=== PATIENT | male | born 1940 | race Caucasian/White ===

== ENCOUNTER 2024-11-24 13:00 | Emergency (ER) | payer MEDICARE, MEDICAID ==
[~2024-11-24] VITALS: Ht 175.3 cm; Wt 81.6 kg
[2024-11-24 13:02] VITALS: O2SAT 99
[2024-11-24 13:10] VITALS: BP 140/65; PULSE 61; RESP 18; TEMP 36.8; O2SAT 100
== END 2024-11-24 15:50 | disposition home or self-care (01) ==
LOC: ER 13:00
DX: S09.90XA Unspecified injury of head, initial encounter (principal); I10 Essential (primary) hypertension; E11.9 Type 2 diabetes mellitus without complications; Z90.49 Acquired absence of other specified parts of digestive tract; W18.2XXA Fall in (into) shower or empty bathtub, initial encounter; Y93.89 Activity, other specified; Y92.89 Other specified places as the place of occurrence of the external cause; Y99.8 Other external cause status
CPT/HCPCS: 99284

== ENCOUNTER 2025-04-23 11:48 | Inpatient (IN) | payer MEDICARE, MEDICAID ==
[~2025-04-23] VITALS: Ht 167.6 cm; Wt 80.3 kg
[~2025-04-23 11:48] MED LIST: APIX5TAB PO; ARIP2TAB66 PO; DILT30TA3 PO; FURO40TA5 PO; GLIM1TAB55 PO; MAG-135; PANT40TA51 PO; SENN-362 PO; TEMA15CA PO; VALS160T28 PO; [UNRECOGNIZED DRUG - CODE]; rosuvastatin
[2025-04-23 12:52] LABS: BASOPHILS % 0.8 % (0.0-2.0); EOSINOPHILS % 3.1 % (0.0-5.0); HEMATOCRIT. 30.0 % (42.0-52.0); HEMOGLOBIN. 9.4 g/dL (14.0-18.0); LYMPHOCYTES % 12.9 % (20.0-50.0); MEAN PLATELET VOLUME 8.0 fl (7.4-10.4); MONOCYTES % 8.9 % (2.0-8.0); NEUTROPHILS % 74.3 % (40.0-76.0); PLATELET 286 x1000/uL (130-400); RED BLOOD CELL COUNT 3.73 mill/uL (4.7-6.1); RED CELL DISTRIBUTION WIDTH 26.2 % (11.6-14.6)
[2025-04-23 13:03] LABS: ADD RBC MORPHOLOGY YES
[2025-04-23 13:12] LABS: UREA NITROGEN BLOOD 41 mg/dL (9-23)
[2025-04-23 13:17] LABS: CREATININE 1.6 mg/dL (0.6-1.3)
[2025-04-23 13:18] LABS: TROPONIN I HIGH SENSITIVITY 149 ng/L (3.0-53)
[2025-04-23 14:49] LABS: PLATELET ESTIMATE NORMAL
[2025-04-23] MEDS ORDERED: GUAIFENESIN 200MG/10ML SUGAR FREE UDC PO PRN (15:00)
[2025-04-23] MEDS ORDERED: DOCUSATE SODIUM 100MG CAPSULE PO PRN (15:00)
[2025-04-23] MEDS ORDERED: MAGNESIUM/ALUMINUM HYDROXIDE/SIMETHICONE 30ML UDC PO PRN (15:00)
[2025-04-23] MEDS ORDERED: DEXTROSE 50% WATER 50ML SYRINGE IV PRN (15:00)
[2025-04-23] MEDS ORDERED: IPRATROPIUM/ALBUTEROL 0.5-3(2.5)MG/3ML NEB HHN PRN (15:00)
[2025-04-23 15:39] LABS: TROPONIN I HIGH SENSITIVITY 122 ng/L (3.0-53)
[2025-04-23 16:11] LABS: FOLIC ACID (FOLATE) SERUM 8.68 ng/mL (>5.38); VITAMIN B12 SERUM 605 pg/mL (211-911)
[2025-04-23] MEDS: INSULIN LISPRO 100 UNITS/ML SUBCUT SCH (17:00)
[2025-04-23 20:00] VITALS: BP 179/49; PULSE 94; RESP 17; TEMP 36.1; O2SAT 96
[2025-04-23] MEDS ORDERED: PNEUMOCOCCAL 20-VAL CONJ-DIP CRM 0.5ML IM ONE (20:15)
[2025-04-23] MEDS ORDERED: ACETAMINOPHEN 325MG TABLET PO PRN (21:00)
[2025-04-23] MEDS: METOPROLOL TARTRATE 50MG TABLET PO SCH (21:16)
[2025-04-23] MEDS: ACETAMINOPHEN 325MG TABLET PO PRN (21:17)
[2025-04-23] MEDS: ATORVASTATIN CALCIUM 40MG TABLET PO SCH (21:17)
[2025-04-23] MEDS: BLOOD SUGAR DIAGNOSTIC STRIP TEST SCH (21:28)
[2025-04-23] MEDS: SODIUM CHLORIDE 0.9% 1,000 ML IV ONE (21:30)
[2025-04-23 21:35] LABS: PHOSPHORUS 4.1 mg/dL (2.5-4.9)
[2025-04-24] VITALS: BP 130/106; PULSE 67; RESP 16; TEMP 36.4; O2SAT 100
[2025-04-24 02:52] LABS: CLARITY URINE CLEAR (CLEAR); COLOR URINE YELLOW (YELLOW); GLUCOSE URINE NEGATIVE (NEGATIVE); KETONES URINE NEGATIVE (NEGATIVE); LEUKOCYTE ESTERASE URINE NEGATIVE (NEGATIVE); NITRITE URINE NEGATIVE (NEGATIVE); OCCULT BLOOD URINE NEGATIVE (NEGATIVE); PH URINE 5.5 (4.5-8.0); PROTEIN URINE NEGATIVE (NEGATIVE); SPECIFIC GRAVITY URINE 1.017 (1.005-1.030); UROBILINOGEN URINE 0.2 E.U./dL (0.2-1.0)
[2025-04-24 03:52] LABS: *AMPHETAMINES SCREEN URINE NEGATIVE (NEGATIVE); *BARBITURATES SCREEN URINE NEGATIVE (NEGATIVE); *BENZODIAZEPINES SCREEN URINE NEGATIVE (NEGATIVE); *COCAINE SCREEN URINE NEGATIVE (NEGATIVE); CANNABINOID URINE SCREEN NEGATIVE (NEGATIVE); METHADONE URINE SCREEN NEGATIVE (NEGATIVE); OPIATES URINE SCREEN NEGATIVE (NEGATIVE); PHENCYCLIDINE URINE SCREEN NEGATIVE (NEGATIVE)
[2025-04-24 03:53] LABS: ECSTASY MDMA SCREEN URINE NEGATIVE (NEGATIVE)
[2025-04-24 04:00] VITALS: BP 173/60; PULSE 74; RESP 18; TEMP 36.3; O2SAT 99
[2025-04-24] MEDS: CLONIDINE 0.1MG TABLET PO PRN (05:13)
[2025-04-24 08:00] VITALS: BP 151/55; PULSE 75; RESP 18; TEMP 36.2; O2SAT 99
[2025-04-24 08:12] LABS: BASOPHILS % 0.6 % (0.0-2.0); EOSINOPHILS % 3.6 % (0.0-5.0); HEMATOCRIT. 24.5 % (42.0-52.0); HEMOGLOBIN. 7.9 g/dL (14.0-18.0); LYMPHOCYTES % 15.0 % (20.0-50.0); MEAN PLATELET VOLUME 8.4 fl (7.4-10.4); MONOCYTES % 9.7 % (2.0-8.0); NEUTROPHILS % 71.1 % (40.0-76.0); PLATELET 224 x1000/uL (130-400); RED BLOOD CELL COUNT 3.09 mill/uL (4.7-6.1); RED CELL DISTRIBUTION WIDTH 26.1 % (11.6-14.6)
[2025-04-24] MEDS ORDERED: SENNOSIDES 8.6MG TABLET PO PRN (08:15)
[2025-04-24 08:30] LABS: CREATININE 1.3 mg/dL (0.6-1.3); TRIGLYCERIDE 72 mg/dL (0-150); UREA NITROGEN BLOOD 44 mg/dL (9-23)
[2025-04-24 08:31] LABS: LDL CHOLESTEROL 60 mg/dL (5-100)
[2025-04-24 08:32] LABS: ASPARTATE AMINOTRANSFERASE 21 IU/L (<34); BILIRUBIN DIRECT 0.3 mg/dL (<=3.0); BILIRUBIN TOTAL 0.5 mg/dL (0.1-1.0)
[2025-04-24 08:33] LABS: PROTEIN TOTAL 5.8 g/dL (6.0-8.3)
[2025-04-24] MEDS: PANTOPRAZOLE SODIUM 40 MG/VIAL IV SCH (09:00)
[2025-04-24 09:03] LABS: TROPONIN I HIGH SENSITIVITY 101 ng/L (3.0-53)
[2025-04-24 12:00] VITALS: BP 169/65; PULSE 76; RESP 18; TEMP 36.4; O2SAT 97
[2025-04-24] MEDS: ASPIRIN 81MG EC TABLET PO SCH (13:16)
[2025-04-24] MEDS: FOLIC ACID 1MG TABLET PO SCH (13:16)
[2025-04-24] MEDS: APIXABAN 2.5 MG TABLET PO SCH (13:16)
[2025-04-24] MEDS: THIAMINE HCL 100MG TABLET PO SCH (13:17)
[2025-04-24] MEDS: FERROUS SULFATE 325MG TABLET PO SCH (13:20)
[2025-04-24 16:00] VITALS: BP 151/58; PULSE 64; RESP 18; TEMP 36.4; O2SAT 100
[2025-04-24 17:25] LABS: TROPONIN I HIGH SENSITIVITY 94 ng/L (3.0-53)
[2025-04-24 20:00] VITALS: BP 149/50; PULSE 87; RESP 18; TEMP 36.4; O2SAT 99
[2025-04-25] VITALS: BP 131/47; PULSE 70; RESP 18; TEMP 36.5; O2SAT 98
[2025-04-25] MEDS: ONDANSETRON HCL 4MG/2ML INJ IV PRN (00:28)
[2025-04-25 04:00] VITALS: BP 136/53; PULSE 67; RESP 18; TEMP 36.4; O2SAT 99
[2025-04-25 05:48] LABS: BASOPHILS % 0.5 % (0.0-2.0); EOSINOPHILS % 3.2 % (0.0-5.0); HEMATOCRIT. 24.6 % (42.0-52.0); HEMOGLOBIN. 7.9 g/dL (14.0-18.0); LYMPHOCYTES % 12.5 % (20.0-50.0); MEAN PLATELET VOLUME 8.0 fl (7.4-10.4); MONOCYTES % 10.5 % (2.0-8.0); NEUTROPHILS % 73.3 % (40.0-76.0); PLATELET 207 x1000/uL (130-400); RED BLOOD CELL COUNT 3.07 mill/uL (4.7-6.1); RED CELL DISTRIBUTION WIDTH 25.9 % (11.6-14.6)
[2025-04-25 06:07] LABS: CREATININE 1.1 mg/dL (0.6-1.3); UREA NITROGEN BLOOD 33 mg/dL (9-23)
[2025-04-25 08:00] VITALS: BP 92/59; PULSE 80; RESP 18; TEMP 37.1; O2SAT 100
[2025-04-25 12:00] VITALS: BP 140/43; PULSE 74; RESP 18; TEMP 36.7; O2SAT 95
[2025-04-25 16:00] VITALS: BP_SYST 158; BP_SYST 161; BP_DIAS 105; BP_DIAS 73; PULSE 78; RESP 18; TEMP 37.3; O2SAT 97
[2025-04-25 20:00] VITALS: BP 167/64; PULSE 83; RESP 17; TEMP 36.4; O2SAT 96
[2025-04-25] MEDS ORDERED: CARISOPRODOL 350 MG TABLET PO PRN (20:30)
[2025-04-25] MEDS: MELATONIN 3MG TABLET PO SCH (21:44)
[2025-04-26] VITALS: BP 116/83; PULSE 60; RESP 16; TEMP 36.6; O2SAT 99
[2025-04-26 04:00] VITALS: BP 114/60; PULSE 64; RESP 16; TEMP 36.6; O2SAT 97
[2025-04-26 08:00] VITALS: BP 155/65; PULSE 88; RESP 18; TEMP 36.3; O2SAT 97
[2025-04-26 12:00] VITALS: BP 142/54; PULSE 59; RESP 18; TEMP 36.6; O2SAT 95
[2025-04-26] MEDS ORDERED: ZOLPIDEM TARTRATE 5MG TABLET PO PRN (13:30)
[2025-04-26 16:00] VITALS: BP 150/47; PULSE 65; RESP 18; TEMP 36.9; O2SAT 97
[2025-04-26 20:00] VITALS: BP 155/65; PULSE 86; RESP 20; TEMP 36.4; O2SAT 98
[2025-04-27] VITALS: BP 150/51; PULSE 88; RESP 18; TEMP 37; O2SAT 100
[2025-04-27 04:00] VITALS: BP 143/52; PULSE 71; RESP 17; TEMP 37.1; O2SAT 100
[2025-04-27 07:03] LABS: BASOPHILS % 0.4 % (0.0-2.0); EOSINOPHILS % 3.6 % (0.0-5.0); HEMATOCRIT. 25.4 % (42.0-52.0); HEMOGLOBIN. 8.1 g/dL (14.0-18.0); LYMPHOCYTES % 15.5 % (20.0-50.0); MEAN PLATELET VOLUME 8.5 fl (7.4-10.4); MONOCYTES % 10.7 % (2.0-8.0); NEUTROPHILS % 69.8 % (40.0-76.0); PLATELET 213 x1000/uL (130-400); RED BLOOD CELL COUNT 3.19 mill/uL (4.7-6.1); RED CELL DISTRIBUTION WIDTH 25.6 % (11.6-14.6)
[2025-04-27 07:12] LABS: CREATININE 1.1 mg/dL (0.6-1.3); UREA NITROGEN BLOOD 27 mg/dL (9-23)
[2025-04-27 07:14] LABS: PHOSPHORUS 3.4 mg/dL (2.5-4.9)
[2025-04-27 08:00] VITALS: BP 175/62; PULSE 73; RESP 20; TEMP 36.4; O2SAT 99
[2025-04-27] MEDS: AMLODIPINE 10MG TABLET PO SCH (08:29)
[2025-04-27 12:00] VITALS: BP 132/57; PULSE 64; RESP 20; TEMP 36.6; O2SAT 100
[2025-04-27 14:35] VITALS: BP 132/57; PULSE 64; TEMP 97.8; O2SAT 100
== END 2025-04-27 15:05 | DRG 391 ==
LOC: ER 11:48 → 5WST 13:55 → EDBEDREQTM 13:58 → EDBEDREQ 13:58 → ENRESERV 14:13 → 5WST 04-25 11:24 → 7EST 04-27 01:00
PROVIDERS: ADMIT Internal Medicine; ATTEND Internal Medicine
DX: K52.9 Noninfective gastroenteritis and colitis, unspecified (principal); G92.8 Other toxic encephalopathy; I21.A1 Myocardial infarction type 2; I48.20 Chronic atrial fibrillation, unspecified; N17.9 Acute kidney failure, unspecified; K29.70 Gastritis, unspecified, without bleeding; K57.30 Diverticulosis of large intestine without perforation or abscess without bleeding; I11.0 Hypertensive heart disease with heart failure; E86.0 Dehydration; E11.65 Type 2 diabetes mellitus with hyperglycemia; D64.9 Anemia, unspecified; F03.90 Unspecified dementia, unspecified severity, without behavioral disturbance, psychotic disturbance, mood disturbance, and anxiety; N40.1 Benign prostatic hyperplasia with lower urinary tract symptoms; N40.0 Benign prostatic hyperplasia without lower urinary tract symptoms; E11.42 Type 2 diabetes mellitus with diabetic polyneuropathy; M17.0 Bilateral primary osteoarthritis of knee; M75.02 Adhesive capsulitis of left shoulder; M48.02 Spinal stenosis, cervical region; F10.20 Alcohol dependence, uncomplicated; Y90.9 Presence of alcohol in blood, level not specified; Z79.01 Long term (current) use of anticoagulants; Z79.899 Other long term (current) drug therapy
CPT/HCPCS: 36415; 70551; 71045; 72141; 73030; 73080; 74176; 80048; 80061; 80076; 80305; 81003; 82550; 82607; 82746; 82962; 83036; 83540; 83550; 83735; 84100; 84153; 84443; 84484; 85025; 92610; 93005; 93970; 97116; 97162; 97166; 97530; 97535; 99291; A4606; J1815; J2060; J2405; J2470